=== PATIENT | female | born 1970 | race Caucasian/White ===

== ENCOUNTER → 2020-06-23 12:57 | Outpatient (CLI) | payer OTHER, SELFPAY ==
--- NOTE | ~2020-06-23 | US_ITS ---
EXAMINATION: US thyroid DATE: 06/23/2020 15:00 INDICATION: Abnormal thyroid function tests. TECHNIQUE: Multiple ultrasound images of the thyroid were obtained. COMPARISON: None. FINDINGS: The right thyroid lobe measures 3.8 x 1.2 x 1.5 cm. The left thyroid lobe measures 4.6 x 1.5 x 1.4 c m. In the right thyroid lobe, there is a 5 mm solid, very hypoechoic, bcaff-mulq-kizy nodule with sm ooth margin without echogenic foci (TI-RADS TR4). In the left thyroid lobe, there is a 4 mm nodule. IMPRESSION: 1. Small thyroid nodules, likely not clinically significant. No follow-up is needed. Reviewed, dictated and finalized at location B. IMPRESSION: 1. Small thyroid nodules, likely not clinically significant. No follow-up is ne eded.
== END ==
PROVIDERS: PCP Nurse Practitioner Adult Health; Visit Provider Nurse Practitioner Adult Health
DX: E07.9 Disorder of thyroid, unspecified (principal)
CPT/HCPCS: 76536

== ENCOUNTER → 2020-06-23 13:00 | Outpatient (CLI) | payer OTHER, SELFPAY ==
--- NOTE | ~2020-06-23 | MM_ITS ---
EXAMINATION: MM screening kb BI w [facility] HISTORY: Screening mammogram TECHNIQUE: Craniocaudal and mediolateral oblique 3-D tomosynthesis images were obtained and synthetic 2-D images were generated. CAD analysis was submitted and interpreted. COMPARISON: 06/08/2019, 06/18/2018, 06/03/2017 BREAST PARENCHYMAL COMPOSITION: The breasts are heterogeneously dense, which may obscure small masses . FINDINGS: RIGHT BREAST: There is no evidence of suspicious mass, calcification, or architectural distortion to suggest malignancy. There has been no significant interval change. LEFT BREAST: There is a possible mass in the posterior third outer breast best appreciated 6.5 cm fro m the nipple on the craniocaudal view. IMPRESSION: 1. Possible left breast mass. 2. Additional mammographic views and possible breast ultrasound are recommended. BI-RADS Category 0: Incomplete: Needs additional imaging evaluation. Reviewed, dictated and finalized at location A. IMPRESSION: 1. Possible left breast mass. 2. Additional mammographic views and possible breast ultrasound are recommended . BI-RADS Category 0: Incomplete: Needs additional imaging evaluation.
== END ==
PROVIDERS: PCP Nurse Practitioner Adult Health; Visit Provider Obstetrics & Gynecology
DX: Z12.31 Encounter for screening mammogram for malignant neoplasm of breast (principal); R92.8 Other abnormal and inconclusive findings on diagnostic imaging of breast
CPT/HCPCS: 77063; 77067

== ENCOUNTER → 2020-07-19 13:31 | Outpatient (CLI) | payer OTHER, SELFPAY ==
--- NOTE | ~2020-07-19 | MMUS_ITS ---
EXAMINATION: MM diagnostic mammo unilat LT, US breast LT limited HISTORY: Follow-up left breast asymmetry TECHNIQUE: Additional 3-D tomosynthesis images of the left breast were performed and synthetic 2-D im ages were generated. CAD analysis was submitted and interpreted. High resolution left breast ultrasou nd was performed. COMPARISON: Comparison to multiple prior studies sequentially, with oldest reviewed study dated 04/2017. BREAST PARENCHYMAL COMPOSITION: Breast composed of scattered areas of fibroglandular density. FINDINGS: MAMMOGRAPHIC FINDINGS: There are no suspicious masses, calcifications or architectural distortion in the left breast to sugg est malignancy. ULTRASOUND: Limited left breast ultrasound: There are multiple cysts of the left breast, largest in the periareol ar location measuring 7 mm. No suspicious masses to suggest malignancy. IMPRESSION: 1. No evidence for malignancy in the left breast. Benign findings. 2. Routine yearly screening mammogram and regular clinical breast examination are recommended. BI-RADS Category 2: Benign finding(s). Reviewed, dictated and finalized at location A. IMPRESSION: 1. No evidence for malignancy in the left breast. Benign findings. 2. Routine yearly screening mammogram and regular clinical breast examination a re recommended. BI-RADS Category 2: Benign finding(s).
== END ==
PROVIDERS: PCP Nurse Practitioner Adult Health; Visit Provider Obstetrics & Gynecology
DX: N60.02 Solitary cyst of left breast (principal)
CPT/HCPCS: 76642; 77065

== ENCOUNTER 2021-07-18 11:15 | Emergency (ER) | payer OTHER, SELFPAY ==
[2021-07-18 11:35] VITALS: BP 116/67; PULSE 113; RESP 18; TEMP 36.9; O2SAT 98
--- NOTE | 2021-07-18 11:43 | ED.URI ---
HPI - URI/Sore Throat General Chief Complaint: Upper Respiratory Infection Stated Complaint: Rt Ear Irritation,Stuffy Nose,Cough Time Seen by Provider: 07/18/21 11:47 Source: patient and RN notes reviewed Mode of arrival: ambulatory Limitations: no limitations History of Present Illness HPI Narrative: 51-year-old female presents with concern for ringing and pain in the right ear, nasal drainage, cough, loss of voice, fatigue. Reports 4-day history of symptoms. Reports she is taken several [id number]-[id number] multisymptom cold medicines with help which help her symptoms, however they gave her diarrhea which she cannot have at work. She reports cough keeps her awake at night. 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 She denies shortness of breath, body aches, chills, sweats, fever. MD elicited complaint: nasal congestion Related Data Home Medications Medication Instructions Recorded Confirmed fluoxetine [Prozac] 20 mg PO DAILY 07/18/21 07/18/21 phentermine 37.5 mg PO DAILY 07/18/21 07/18/21 rosuvastatin 20 mg PO DAILY 07/18/21 07/18/21 thyroid 30 mg PO DAILY 07/18/21 07/18/21 Allergies Allergy/AdvReac Type Severity Reaction Status Date / Time codeine AdvReac Nausea and Verified 07/18/21 11:46 Vomiting Review of Systems Review of Systems: CONSTITUTIONAL: Reports malaise. Denies chills, sweats, or fever. EYES: Denies visual changes, redness, or discharge. ENT: Reports rhinorrhea, congestion, sinus pain, otalgia. Denies sore throat. CARDIOVASCULAR: Denies chest pain, palpitations, or edema. RESPIRATORY: Reports cough. Denies dyspnea. GASTROINTESTINAL: Denies abdominal pain, nausea, vomiting, diarrhea SKIN: Denies rash or itching. MUSCULOSKELETAL: Denies myalgia. NEUROLOGIC: Reports headache. All systems reviewed & are unremarkable except as noted in HPI and below PMFSH Comments At time of signature, agree with nursing past medical, surgical, social and family history. There is no relevant family history pertinent to the presenting complaint Exam Narrative: GENERAL: Nontoxic-appearing and in no acute distress. HEAD: Normocephalic EYES: PERRLA, conjunctivae clear ENT: Nares clear, turbinates edematous and erythematous, clear discharge. Mucous membranes moist. TM pearly arizmendi with sharp light reflex bilaterally; no tragal tenderness. Oropharynx not erythematous without lesions. Tonsils not enlarged and without exudate, no drooling, no hoarseness, no trismus, uvula midline. NECK: Supple. No lymphadenopathy CHEST: Clear to auscultation, breath sounds equal. No wheezing, rhonchi, rales, or stridor. No respiratory distress, speaks in full sentences. HEART: Regular rate and rhythm. No murmur heard. SKIN: Warm, dry, no rash. NEURO: Alert and oriented x3. PSYCH: Normal mood and affect Course Course Emergency Course: Patient is aware of diagnosis, understands and agrees to treatment plan. Anticipatory guidance given. Patient agrees to follow-up as directed and is aware of reasons to seek care at the emergency department. Portions of this record may have been created with voice recognition software Level of Care: Express Care Visit Vital Signs Vital signs: Vital Signs Temperature 98.4 F 07/18/21 11:35 Pulse Rate 113 H 07/18/21 11:35 Respiratory Rate 18 07/18/21 11:35 Blood Pressure 116/67 07/18/21 11:35 Pulse Oximetry 98 07/18/21 11:35 Temperature 98.4 F 07/18/21 11:35 Pulse Rate 113 H 07/18/21 11:35 Respiratory Rate 18 07/18/21 11:35 Blood Pressure 116/67 07/18/21 11:35 Pulse Oximetry 98 07/18/21 11:35 Reviewed. MDM - URI/Sore Throat MDM Narrative Medical decision making narrative: Differential diagnosis considered: Cerna virus, strep pharyngitis, allergic rhinitis, upper respiratory tract infection, sinusitis, rhinosinusitis, nasopharyngitis. viral pharyngitis, otitis media, otitis externa, pneumonia, bronchitis, viral cough syndrome, viral syndrome, and i
== END 2021-07-18 12:14 | disposition home or self-care (01) ==
PROVIDERS: Emergency Provider Nurse Practitioner; PCP Nurse Practitioner Adult Health
DX: J06.9 Acute upper respiratory infection, unspecified (principal); Z20.822 Contact with and (suspected) exposure to COVID-19
CPT/HCPCS: 87426; 87804; 99213; C9803; G0463

== ENCOUNTER → 2021-11-02 15:50 | Outpatient (CLI) | payer OTHER, SELFPAY ==
--- NOTE | ~2021-11-02 | MM_ITS ---
EXAMINATION: MM screening [facility] BI w [facility] HISTORY: Screening mammogram TECHNIQUE: Craniocaudal and mediolateral oblique 3-D tomosynthesis images were obtained and synthetic 2-D images were generated. CAD analysis was submitted and interpreted. COMPARISON: 07/19/2020, 06/23/2020, 06/08/2019 BREAST PARENCHYMAL COMPOSITION: The breasts are heterogeneously dense, which may obscure small masses . FINDINGS: There is no suspicious mass, calcification, or architectural distortion to suggest malignan cy in either breast. There has been no suspicious interval change. IMPRESSION: 1. No mammographic evidence of malignancy. 2. Recommend routine screening mammography in one year. BI-RADS Category 1: Negative Reviewed, dictated and finalized at location A.
== END ==
PROVIDERS: PCP Nurse Practitioner Adult Health; Visit Provider Obstetrics & Gynecology
DX: Z12.31 Encounter for screening mammogram for malignant neoplasm of breast (principal)
CPT/HCPCS: 77063; 77067

== ENCOUNTER 2022-11-06 16:08 | Emergency (ER) | payer OTHER, SELFPAY ==
--- NOTE | ~2022-11-06 | XR_ITS ---
EXAM: XR knee LT 3V DATE: 11/06/2022 17:31 HISTORY: POPPING AND PAIN WHILE WALKING . COMPARISON: None available. FINDINGS: Normal mineralization. No fracture or dislocation. No lytic or blastic lesion. Mild tricom partment osteoarthritis. No erosion or periosteal change. Soft tissues within normal limits. Small kn ee joint effusion. IMPRESSION: No acute osseous finding in the left knee. Reviewed, dictated and finalized at location K.
--- NOTE | ~2022-11-06 | CT_ITS ---
EXAMINATION: CTA [facility] DATE: 11/07/2022 02:03 INDICATION: Posterior left knee pain. TECHNIQUE: Computed tomographic angiography (CTA) of the left lower limb was performed with 150 mL Om nipaque-350 intravenous contrast. Automated exposure control and iterative reconstruction technique w ere employed. The dose-length product was 637.45 mGy-cm. Maximum intensity projection 3D-reconstructi ons of the arteries were constructed by the technologist on a separate workstation. COMPARISON: Left knee radiographs 11/06/2022 FINDINGS: There is lateral subluxation of patella. No fracture. Left knee demonstrates mild osteoarth ritis of medial and lateral compartments and moderate osteoarthritis of patellofemoral compartment. N o knee joint effusion. There is a small Blanc's cyst with loose bodies. There is mild left hip osteoa rthritis. There is no significant stenosis of left common femoral artery, profunda femoris, superfici al femoral artery, popliteal artery, tibioperoneal trunk, anterior tibial artery, posterior tibial ar trish, or peroneal artery. IMPRESSION: 1. No significant arterial occlusive disease. 2. Polyarticular osteoarthritis. 3. Small Blanc's cyst with loose bodies. Reviewed, dictated and finalized at location A.
--- NOTE | ~2022-11-06 | US_ITS ---
EXAMINATION: US venous doppler [facility] DATE: 11/06/2022 20:04 INDICATION: POSTERIOR PAIN WHILE WALKIN . TECHNIQUE: Grayscale images without and with compression and Doppler images of the left lower extremi ty veins were obtained. COMPARISON: None FINDINGS: The left common femoral vein, profunda (deep) femoral vein, femoral vein, popliteal vein, peroneal v ein, posterior tibial veins, gastrocnemius vein, and greater saphenous vein are patent. IMPRESSION: Patent left lower extremity veins. No evidence of deep venous thrombosis. Reviewed, dictated and finalized at location K.
[2022-11-06 16:52] VITALS: BP 144/84; PULSE 110; RESP 16; TEMP 37.1; O2SAT 98
[2022-11-06 21:44] VITALS: BP 129/76; PULSE 91; RESP 16; O2SAT 97
--- NOTE | 2022-11-06 22:34 | ED.LOWEXIN ---
HPI - Extremity Injury (Lower) General Chief Complaint: Extremity Injury, Lower Stated Complaint: left knee injury Time Seen by Provider: 11/06/22 22:01 Source: patient Limitations: no limitations History of Present Illness HPI Narrative: Patient presents to the ED with significant other for L knee pain. Started suddenly arround 3 PM while walking, heard a pop and her leg felt like it gave out, she lowered herself to the ground, went to get back up and found herself unable to bear weight with severe pain in the back of the left knee. Denies history of this pain in the past. Admits to associated knee swelling. Denies any other injuries. Denies numbness, weakness, back pain, fever, rash. States the pain radiates up the back of her leg to the mid thigh. Denies history of injuries to the region but notes she has received therapy on her left knee before for arthritis versus burstitis. Denies inversion or eversion, more of a hyperextension if she had to choose. Has not tried anything for the pain, better when resting, worse with weight bearing or movement. Related Data Home Medications Medication Instructions Recorded Confirmed fluoxetine 20 mg capsule (Prozac) 20 mg PO DAILY 07/18/21 11/13/22 rosuvastatin 20 mg tablet 20 mg PO DAILY 07/18/21 11/13/22 thyroid 30 mg tablet 30 mg PO DAILY 07/18/21 11/13/22 Allergies Allergy/AdvReac Type Severity Reaction Status Date / Time codeine AdvReac Nausea and Verified 11/12/22 11:46 Vomiting Review of Systems Review of Systems: All systems reviewed & are unremarkable except as noted in HPI and below (HPI) [facility] Family History Family History (Updated 11/12/22 @ 11:48 by Iqra Zimmerman MA) Mother Cancer Other Cancer Social History Social History (Updated 11/12/22 @ 11:49 by Iqra Zimmerman MA) Smoking status: Never smoker Alcohol intake: never Substance use: never Substance use type: does not use Lack of Transportation: No Lack of Food: Never True Current Housing: I Have Housing Concerned About Future Housing: No Difficulty Paying Gas/Electric Bills: No Difficulty Paying for Meds: No Currently Unemployed: No Education: High School Diploma/GED Difficulty w/ Childcare or Family Care: No Comments At time of signature, I have reviewed and agree with nursing past medical, surgical, social and family history unless otherwise noted. Please see the nursing chart for further information. There is no relevant family history pertinent to the presenting complaint. Exam Narrative: CONST: No acute distress. Well nourished. HENMT: Head is normocephalic and atraumatic. Moist mucous membranes. No posterior oropharynx erythema. EYES: No conjunctival icterus, injection, or pallor. PERRL. NECK: No meningeal signs. RESP: Able to speak in full sentences. Normal respiratory effort. CTAB. CARDIO: Regular rate. Regular rhythm. 2+ DP and radial pulses bilaterally. GI: Nondistended. No tenderness to palpation. Soft. : No CVA tenderness to palpation. SKIN: No rashes or lesions noted on exposed skin. NEURO: Oriented x3. Moves all extremities. EXTREM: No pedal edema. PSYCH: Normal affect. Extrem: Left lower extremity: normal capillary refill and knee Details: tenderness Location: of the popliteal fossa; not of the patella, not of the tibial tuberosity, not of the medial joint line, not of the lateral joint line, not of the proximal fibula, not of the pre-patellar area, not of the infrapatellar area, not of the distal upper leg and not of the proximal tibia, abnormal ROM Details: held in an abnormal fashion (30 degrees of flexion), pain with active ROM Details: with extension and with flexion, pain with passive ROM Details: with extension and with flexion and unable to extend lower leg actively, knee ligament exam normal Details: anterior drawer test normal, posterior drawer test normal, valgus stress test normal, varus stress test normal, no pain with axi
[2022-11-06 23:21] LABS: Estimated Glomerular Filt Rate > 60
[2022-11-07 02:12] LABS: Anion Gap 8 mmol/L (8-16); Blood Urea Nitrogen 14 mg/dL (7-17); Calcium 8.5 mg/dL (8.4-10.2); Carbon Dioxide 19 mmol/L (22-30); Chloride 106 mmol/L (98-107); Estimated Glomerular Filt Rate > 60; Glucose 103 mg/dL (65-110); Potassium 3.6 mmol/L (3.4-5.0); Sodium 133 mmol/L (137-145)
[2022-11-07 08:01] VITALS: BP 120/75; PULSE 96; RESP 18; O2SAT 97
[2022-11-07 09:19] VITALS: BP 127/85; PULSE 96; RESP 18; O2SAT 100
== END 2022-11-07 09:31 | disposition home or self-care (01) ==
PROVIDERS: Emergency Provider Student in an Organized Health Care Education/Training Program; PCP Nurse Practitioner Family
DX: M71.22 Synovial cyst of popliteal space [Baker], left knee (principal); M17.12 Unilateral primary osteoarthritis, left knee; M25.562 Pain in left knee; M25.462 Effusion, left knee; M79.652 Pain in left thigh
CPT/HCPCS: 36415; 73562; 73706; 80048; 81025; 93971; 99284; Q9967

== ENCOUNTER → 2022-11-16 07:39 | Outpatient (CLI) | payer OTHER, SELFPAY ==
--- NOTE | ~2022-11-16 | MR_ITS ---
MRI of the left knee Clinical history: Meniscal tear Technique: Coronal proton density and proton density-weighted images, sagittal proton-density and T2 fat-sat images, and axial proton-density fat-saturated images were acquired. Findings: Anterior and posterior cruciate ligaments are intact. Medial collateral ligament and the la teral collateral ligament complex are intact. Popliteus tendon is intact. Lateral meniscus is intact, without evidence of tear. There is a radial tear near the posterior root of the medial meniscus. There is moderate chondromalacia of the medial compartment. There is mild chondromalacia of the later al compartment. There is extensive high-grade chondromalacia at the patellar apex extending to the la teral patellar facet. There is diffuse moderate to high-grade chondromalacia of the femoral trochlea. Small tricompartmental osteophytes are present. Extensor mechanism is intact. No significant joint effusion. Minimal Blanc's cyst. There is a 4 mm lo ose body within the Blanc's cyst. Impression: Radial tear near the posterior root of the medial meniscus. Mild to moderate tricompartmental osteoarthritis, as detailed above. Minimal Blanc's cyst with 4 mm loose body within it. Reviewed, dictated and finalized at location . Impression: Radial tear near the posterior root of the medial meniscus. Mild to moderate tricompartmental osteoarthritis, as detailed above. Minimal Blanc's cyst with 4 mm loose body within it.
== END ==
PROVIDERS: PCP Nurse Practitioner Family; Visit Provider Orthopaedic Surgery
DX: S83.242A Other tear of medial meniscus, current injury, left knee, initial encounter (principal); M17.12 Unilateral primary osteoarthritis, left knee; M71.22 Synovial cyst of popliteal space [Baker], left knee; M23.42 Loose body in knee, left knee
CPT/HCPCS: 73721

== ENCOUNTER 2022-12-28 01:26 | Day surgery (SDC) | payer OTHER, SELFPAY ==
[2022-12-18 15:17] VITALS: BMI 35.4
--- NOTE | 2022-12-18 15:22 | PC.NURSE ---
Report to the Outpatient Waiting Room, entrance under the green pavilion located off [facility], at time 1000 on date 12/28/22. Planned Procedure Time: 1200. Time changes happen often and if your time is changed the preop area will call you the afternoon before. - You and your visitor will be asked to self-screen and do not enter if you have any COVID symptoms. - A mask is optional within the hospital at this time. Patients may have clear liquids (water, carbonated beverages, clear teas, apple juice) until 3 hours prior to surgery with a maximum of 20 ounces. - No food from midnight until time of surgery Take the following medications with a SIP of water the morning of surgery: FLUOXETINE DO NOT STOP ANY OF YOUR OTHER PRESCRIPTION MEDICATIONS PRIOR TO SURGERY ?EXCEPT THE FOLLOWING Medications to discontinue per physician: VITAMINS/SUPPLEMENTS Date to take last dose: 12/24/22 Please no make-up, nail kenyan, hairspray, perfume, deodorant, or body powder the day of surgery. No jewelry (including any body piercings) or valuables the day of surgery, leave them at home. Please take a shower or bath the night before, or the morning of, surgery with an antibacterial soap. Wear comfortable, loose fitting clothing. - Jewelry must be removed prior to entering the operating room. Rings and piercings that are not removed may be cut off. - The hospital will not accept responsibility for valuables. - Please leave all valuables, including medications, at home the day of surgery. If you are going home after surgery, a licensed professional driver must drive you home. - NO public transportation without another adult if you receive anesthesia. - We recommend that an adult stay with you for 24 hours following discharge. - We also recommend that you do not drive, make important decision, drink alcoholic beverages, or take any drugs that were not prescribed by your health care provider for at least 24 hours after your discharge time. Follow any additional instructions given to you from your surgeon. If you or anyone in your household have experienced Covid symptoms in the past week, please notify your surgeon or the nurse liaison at the phone number below for possible testing. Telephone instructions given to PT - MCKAYLA MARSHALL and asked if any additional questions and then verbalized understanding. Patient advised to call surgeon office or pre surgery nurse liaison [phone] if any additional questions.
[2022-12-28] VITALS (9 sets, daily range): BP systolic 89–138; BP diastolic 50–88; PULSE 77–105; RESP 15–21; TEMP 36.4; O2SAT 95–100
[2022-12-28] MEDS: ACETAMINOPHEN 500 MG TABLET 1000 MG PO (10:45)
[2022-12-28] MEDS: LACTATED RINGERS 1,000 ML 30 ML IV CONT ×2 (10:50→13:46)
[2022-12-28] MEDS: KETOROLAC 15 MG/ML VIAL (*BKC) IV PUSH (10:52)
--- NOTE | 2022-12-28 11:20 | WPDANESEPPF ---
Anes - Initial Pre Proc Eval Procedure: Operation Date: 12/28/22 12:00 Proposed Procedures p Left Knee Arthroscopic Partial Medial Meniscectomy - Karel Willis MD Date/Time: 12/28/22 11:20 Surgeon: Karel Willis MD Pre Op Diagnosis: left knee medial meniscus tear Patient Data Age: 52 Gender: F Height: 1.45 m Weight: 73.6 kg Last Vital Signs Temp 36.4 C L 12/28/22 10:06 Pulse 81 12/28/22 10:06 Resp 20 12/28/22 10:06 BP 138/88 12/28/22 10:06 Pulse Ox 97 12/28/22 10:06 O2 Del Method Room Air 12/28/22 10:06 Allergies Allergy/AdvReac Type Severity Reaction Status Date / Time codeine AdvReac Unknown Nausea and Verified 12/28/22 10:10 Vomiting Home Medications Medication Instructions Recorded Confirmed Type fluoxetine 20 mg capsule (Prozac) 20 mg PO DAILY 07/18/21 12/28/22 History ascorbic acid (vitamin C) 1,000 mg 500 mg PO DAILY 12/18/22 12/28/22 History tablet (Vitamin C) cholecalciferol (vitamin D3) 125 125 mcg PO DAILY 12/18/22 12/28/22 History mcg (5,000 unit) tablet (Vitamin D3) cinnamon bark 500 mg capsule 500 mg PO DAILY 12/18/22 12/28/22 History (Cinnamon) glucosamine sulfate 750 mg tablet 750 mg PO DAILY 12/18/22 12/28/22 History multivitamin 1 tablet PO DAILY 12/18/22 12/28/22 History vitamin E 670 mg (1,000 unit) 670 mg PO DAILY 12/18/22 12/28/22 History capsule Patient hx anesthesia problems: post op nausea/vomiting Family hx anesthesia problems: none Results Review: All pre-operative results and documents have been reviewed as part of the pre-operative evaluation. [facility] Past Medical History Medical History (Updated 12/28/22 @ 11:20 by Clay Clemens DO) Anxiety Depression PONV (postoperative nausea and vomiting) Family History Family History Mother Cancer Other Cancer Social History Social History (Reviewed 12/10/22 @ 08:13 by RADU Trejo Smoking status: Never smoker Alcohol intake: never Substance use: never Substance use type: does not use Lack of Transportation: No Lack of Food: Never True Current Housing: I Have Housing Concerned About Future Housing: No Difficulty Paying Gas/Electric Bills: No Difficulty Paying for Meds: No Currently Unemployed: No Education: High School Diploma/GED Difficulty w/ Childcare or Family Care: No Living arrangements: with family Spiritual care concerns: No Anes - Eval Final PreProcedure Day of Procedure 12/28/22 11:20 Patient weight: obese Heart: regular rate and rhythm Lungs: clear to auscultation Airway: Mallampati scale class II Neurological: alert and oriented Last oral intake: >/= 8 hours ASA classification: II Emergent: no Anesthetic plan: proceed Anesthesia type and monitoring: general LMA and standard monitoring Results Review: All pre-operative results and documents have been reviewed as part of the pre-operative evaluation. Informed Consent: The patient's anesthetic plan and its attendant risks and benefits were discussed with the patient/family/POA. Questions were solicited and answers provided to the satisfaction of the patient/family/POA.
[2022-12-28] MEDS: SCOPOLAMINE 1.5 MG PATCH TRANSDERM (12:05)
--- NOTE | 2022-12-28 12:14 | WPDHPUPDATE1 ---
History and Physical Update Update Date/Time: 12/28/22 12:14 History and Physical has been reviewed, including an updated exam of the patient. There are NO changes in the patient's condition. Risks, benefits, and alternatives have been discussed and questions answered. Patient agrees to proceed with procedure.
[2022-12-28] MEDS: ceFAZolin 2 GM/D5W 50 ML 2 GM/50 ML BAG IVPB (12:24)
[2022-12-28] MEDS: BUPIVACAINE/EPINEPHRINE 0.5% 10 ML VIAL 30 ML INFILTRATE (12:55)
--- NOTE | 2022-12-28 13:27 | P.OP_ITS ---
Procedure Note - Detailed Date of Procedure 12/28/22 Pre-op Diagnosis left knee medial meniscus tear Post-op Diagnosis Same Procedure Performed Arthroscopic partial medial meniscectomy, left knee. Surgeon Karel Willis MD [employer] Consultant Supervisor Eliana Chery PA-C Anesthesia General Findings Posterior horn degenerative tear with radial split. Consistent with MRI. Medial femur chondromalacia grade 2/3, medial tibia grade 1. Lateral femur chondromalacia grade 0, lateral tibia grade 0. Patellar grade 0, trochlea grade 1. Description of Procedure The patient was identified and the surgical site confirmed and signed in the preoperative holding area. Antibiotics were started per protocol. She was brought to the operative room and transferred to the OR table. A general anesthetic was administered. Supine position with the operative lower extremity position in the leg ferrari after placement of a well padded tourniquet. The leg support was lowered and the contralateral limb was supported with a soft bolster. The knee was prepped and draped in the usual sterile fashion. A time- out was performed. The portal sites were marked and infiltrated with 0.5% Marcaine 20 mL. The limb was exsanguinated and the tourniquet inflated to 300 mL Hg. Standard inferolateral and inferomedial portals were established. Inflow was obtained with the saline pump. The camera was introduced. Diagnostic inspection of the joint was accomplished. The meniscus was debrided with the arthroscopic shaver and punches until stable. The radiofrequency probe was also used for further d?bridement. The arthroscopic instruments were removed. The tourniquet released and wounds closed with subcutaneous 4-0 Monocryl absorbable suture. Steri strips and a sterile dressing were applied. A light elastic wrap was placed. The patient was extubated and brought to the recovery room in stable condition. Estimated Blood Loss -5.0 Drains No Complications No immediate complications Condition Stable Disposition PACU [facility] Billing Surgery - Charge Forward: Surgery Billing
== END 2022-12-28 15:18 | disposition home or self-care (01) ==
PROVIDERS: PCP Nurse Practitioner Family; Visit Provider Orthopaedic Surgery
PROC: (CPT 29870; principal; 2022-12-28 12:00)
DX: S83.242A Other tear of medial meniscus, current injury, left knee, initial encounter (principal); M94.262 Chondromalacia, left knee; X50.0XXA Overexertion from strenuous movement or load, initial encounter; F41.9 Anxiety disorder, unspecified; F32.A Depression, unspecified; E66.9 Obesity, unspecified; Z68.35 Body mass index [BMI] 35.0-35.9, adult
CPT/HCPCS: 29881; A9270; J0690; J1100; J1885; J2250; J2405; J2704; J3010; J7120

== ENCOUNTER → 2023-02-06 15:00 | Outpatient (CLI) | payer OTHER, SELFPAY ==
--- NOTE | ~2023-02-06 | MM_ITS ---
EXAMINATION: MM screening [facility] HISTORY: Screening mammogram TECHNIQUE: Craniocaudal and mediolateral oblique 3-D tomosynthesis images were obtained and synthetic 2-D images were generated. CAD analysis was submitted and interpreted. COMPARISON: 11/02/2021, 07/19/2020, 06/23/2020 BREAST PARENCHYMAL COMPOSITION: There are scattered areas of fibroglandular density. FINDINGS: No suspicious mass, calcification, or architectural distortion are identified in either miguel a ast to suggest malignancy. There has been no suspicious interval change. IMPRESSION: 1. No mammographic evidence of malignancy. 2. Recommend routine screening mammography in one year. BI-RADS Category 1: Negative Reviewed, dictated and finalized at location A. CIPAL INVESTIGATOR
== END ==
PROVIDERS: Visit Provider Obstetrics & Gynecology
DX: Z12.31 Encounter for screening mammogram for malignant neoplasm of breast (principal)
CPT/HCPCS: 77063; 77067

== ENCOUNTER 2024-02-12 15:14 | Outpatient (CLI) | payer BC, OTHER, SELFPAY ==
--- NOTE | ~2024-02-12 | MM_ITS ---
EXAMINATION: MM screening [facility] BI [facility] [place] HISTORY: Screening TECHNIQUE: Craniocaudal and mediolateral oblique 3-D tomosynthesis images were obtained and synthetic 2-D images were generated. CAD analysis was submitted and interpreted. COMPARISON: Comparison to multiple prior studies sequentially, with oldest reviewed study dated 06/18. BREAST PARENCHYMAL COMPOSITION: Not dense: There are scattered areas of fibroglandular density. FINDINGS: There is no evidence of suspicious mass, calcification, or architectural distortion to sugg est malignancy in either breast. There has been no suspicious interval change. IMPRESSION: 1. No mammographic evidence of malignancy. 2. Recommend routine screening mammography in one year. BI-RADS Category 1: Negative Reviewed, dictated and finalized at location B. FIREMAN
== END 2024-02-12 15:15 | disposition home or self-care (01) ==
PROVIDERS: Visit Provider Obstetrics & Gynecology
DX: Z12.31 Encounter for screening mammogram for malignant neoplasm of breast (principal)
CPT/HCPCS: 77063; 77067

== ENCOUNTER 2024-12-30 13:18 | Outpatient (CLI) | payer BC, OTHER, SELFPAY ==
--- NOTE | ~2024-12-30 | MR_ITS ---
EXAMINATION: MR knee RT wo con DATE: 12/30/2024 14:16 INDICATION: Medial right knee pain. Meniscal tear. TECHNIQUE: Magnetic resonance imaging (MRI) of the right knee was performed without intravenous contrast. Sequences included coronal PD-weighted FSE, coronal PD-weighted FS FSE, sagittal T2-weighted FSE, sagittal PD-weighted FS FSE and axial PD weighted fat saturated FSE. COMPARISON: None. FINDINGS: Medial compartment: Complex tear at the posterior horn of the medial meniscus with longitudinal horizontal component extending from the posterior body throughout the posterior horn, radial component at the central aspect of the posterior horn and longitudinal vertical component in the more lateral aspect of the posterior horn. Partial-thickness chondral ulceration along the anterior to central weightbearing medial femoral condyle deepest along the central weightbearing aspect of the femoral condyle were there is mild cortical irregularity and subarticular edema-like signal change. Additional mild partial-thickness cart ilage loss without evident chondral surface regularity and without degenerative subchondral changes at the medial tibial plateau. Lateral compartment: Lateral meniscus is normal. Articular cartilage is normal. Patellofemoral compartment: Deep chondral ulceration at the cephalad aspect of the patellar apical ridge and more extensively at the medial patellar facet with scattered small foci of underlying subarticular edema-like signal change. There is shallow chondral ulceration at the inferior aspect of the medial trochlea. Ligaments and tendons: Anterior and posterior cruciate ligaments are normal. The medial collateral ligament and fibular collateral ligament complex are normal. The extensor mechanism is normal. The visualized medial and lateral hamstring tendons as well as the iliotibial band are normal. Fluid: Small knee joint effusion. No loose osteochondral bodies identified. Small Blanc's cyst. Mild infrapatellar subcutaneous edema without discrete bursal fluid collection. Osseous/other: No fracture or pathologic marrow replacing process. IMPRESSION: 1. Complex tear of the posterior horn of the medial meniscus. 2. 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 3. Small right knee joint effusion and small Blanc's cyst. Reviewed, dictated and finalized at location A. IMPRESSION: 1. Complex tear of the posterior horn of the medial meniscus. 2. 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 3. Small right knee joint effusion and small Blanc's cyst.
== END 2024-12-30 13:19 | disposition home or self-care (01) ==
LOC: MICIMG 13:19
PROVIDERS: PCP Orthopaedic Surgery; Visit Provider Orthopaedic Surgery
DX: S83.241A Other tear of medial meniscus, current injury, right knee, initial encounter (principal); X58.XXXA Exposure to other specified factors, initial encounter; M25.461 Effusion, right knee; M17.11 Unilateral primary osteoarthritis, right knee
CPT/HCPCS: 73721

== ENCOUNTER 2025-01-06 09:31 | Outpatient (CLI) | payer BC, OTHER, SELFPAY ==
--- NOTE | 2025-01-06 09:42 | ECG_ITS ---
Test Date: 2025-01-06 10:00:58 Measurements Intervals [place] Rate: 83 P: 8 MN: 143 QRS: 16 QRSD: 80 T: 5 QT: 392 QTc: 461 Interpretive Statements SINUS RHYTHM NORMAL ECG No previous ECG available for comparison Electronically Signed On 01-06-2025 14:41:20 BUILDING ASSOCIATE by Jaime More M.D.
--- OUTSIDE RECORDS SUMMARY | 2025-01-06 10:17 | XMS_ITS | Patient Health Record ---
Author Organization [facility] Address [address] [place], [place] [id number] Care Team Providers Care Clay Pigeon Setter Name Role Phone Evangelina Will Unavailable Unavailable Reason For Referral No Information Medications Medication SIG (Take, Route, Frequency, Duration) Notes Start Date End Date Status Medrol Dosepak ORAL Medrol DosepakOr iginal MedicationMedrol Dosepak *Reorder from [employer] for eRx and Interaction Alerts* 04/16/2022 Active Social History Social History Additional Details Category Social Info Options Details Migrated Social History Migrated Social History Smoking Status : Never used tobacco , History of tobacco use : Plan Of Treatment No Information Insurance Providers Payer Name Payer Address Payer Phone Subscriber Number Group Number Insured Name Patient Relationship to Insured Coverage Start Date Coverage End Date [employer] [address] [place], [place] [phone] [id number] MICHELLE MARSHALL Spouse - patient is the spouse of the insured
--- OUTSIDE RECORDS SUMMARY | 2025-01-06 10:17 | XMS_ITS | Clinical Summary ---
Author Organization [facility] Address [facility] [place] [address] Care Team Providers Care Piano Regulator Name Role Phone Luisana Martin NP Primary Care Provider [phone] Allergies Active Allergy Reactions Criticality Noted Date Comments Codeine Vomiting Low 05/20/2020 Medications No known medications Active Problems No known active problems Surgical History Surgery Date Site/Laterality Comments NO PAST SURGERIES Medical History Medical History Date Comments Known health problems: none Family History Medical History Relation Name Comments No Known Problems Father Diabetes Mother Relation Name Status Comments Father Alive Mother Alive Social History Tobacco Use Types Packs/Day Years Used Date Smoking Tobacco: Never Personal Safety Answer Date Recorded Getting School Help Needed Not on file 05/18 Comments Unknown Sex and Gender Information Value Date Recorded Sex Assigned at Not on file Legal Sex 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 Gender Identity Not on file Sexual Orientation Not on file 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
== END 2025-01-06 09:32 | disposition home or self-care (01) ==
LOC: ANHLAB 09:32 → ANHCARD 09:32
PROVIDERS: Visit Provider Orthopaedic Surgery
DX: Z01.818 Encounter for other preprocedural examination (principal)
CPT/HCPCS: 93005

== ENCOUNTER 2025-02-15 15:42 | Outpatient (CLI) | payer BC, OTHER, SELFPAY ==
--- NOTE | ~2025-02-15 | MM_ITS ---
EXAMINATION: MM screening [facility] HISTORY: Screening TECHNIQUE: Craniocaudal and mediolateral oblique 3-D tomosynthesis images were obtained and synthetic 2-D images were generated. CAD analysis was submitted and interpreted. COMPARISON: Comparison to multiple prior studies sequentially, with oldest reviewed study dated , 06/08/2019 BREAST PARENCHYMAL COMPOSITION: Not Dense: There are scattered areas of fibroglandular density. FINDINGS: There is no evidence of suspicious mass, calcification, or architectural distortion to suggest malignancy in either breast. IMPRESSION: 1. No mammographic evidence of malignancy. 2. Recommend routine screening mammography in one year. BI-RADS Category 1: Negative Reviewed, dictated and finalized at location A. NESS PROCESS MODELER
== END 2025-02-15 15:43 | disposition home or self-care (01) ==
LOC: MICIMG 15:43
PROVIDERS: PCP Obstetrics & Gynecology; Visit Provider Obstetrics & Gynecology
DX: Z12.31 Encounter for screening mammogram for malignant neoplasm of breast (principal)
CPT/HCPCS: 77063; 77067

== ENCOUNTER 2025-02-19 01:06 | Day surgery (SDC) | payer BC, OTHER, SELFPAY ==
[2025-02-17 09:03] VITALS: BMI 38.5
--- NOTE | 2025-02-17 09:12 | PC.NURSE ---
[facility] has started construction of its new state of the art ER which will open Spring 2026. With this, we anticipate parking may be a challenge for some our surgical patients and families. Parking spaces are limited but are available for all Surgical, obstetrics, and ER patients sharing this lot. If you arrive and find you are having a hard time finding a parking space, please note that we understand the challenges, please drive around the hospital and park near Hospital Entrance 1. When you enter this entrance, you can ask a volunteer to direct or take you back to the surgical waiting area to check in. We appreciate everyone?s understanding of these expected challenges while we build for your future. Report to the Outpatient Waiting Room, entrance under the green pavilion located off [address], at time __1200 on date __02/19/2025 . Planned Procedure Time: __1400 .? Time changes happen often and if your time is changed the preop area will call you the afternoon before. - You and your visitor will be asked to self-screen and do not enter if you have any COVID symptoms. Please call surgeon if you need to reschedule. - A mask is optional within the hospital at this time. Patients may have clear liquids (water, carbonated beverages, clear teas, apple juice) until 3 hours prior to surgery with a maximum of 20 ounces. - No food from midnight until time of surgery and no smoking, or chewing tobacco (or any form of nicotine). No chewing gum, candy or mints. - Infants may have breast milk until 4 hours before surgery, formula 6 hours prior to surgery. - Children will be allowed to drink immediately following surgery.? If applicable, please bring a bottle or sippy cup to assist with drinking. Juice, water, soda, and popsicles are readily available.? For infants on formula, please bring formula the day of surgery.? Pacifiers are allowed. Take only the following medications with a SIP of water on the morning of surgery: _Prozac DO NOT STOP ANY OF YOUR OTHER PRESCRIPTION MEDICATIONS PRIOR TO SURGERY EXCEPT THE FOLLOWING Hold all vitamins and supplements for 3 days per anesthesiologist. Medications to discontinue per physician ____N/A Date to take last dose___N/A Please no make-up, nail bengali, hairspray, perfume, deodorant, or body powder the day of surgery.? No jewelry (including any body piercings) or valuables the day of surgery, leave them at home.? Please take a shower or bath the night before, or the morning of, surgery with an antibacterial soap.? Wear comfortable, loose fitting clothing.? Children are encouraged to wear pajamas. - Jewelry must be removed prior to entering the operating room.? Rings and piercings that are not removed may be cut off. - The hospital will not accept responsibility for valuables.? - Please leave all valuables, including medications, at home the day of surgery. If you are going home after surgery, a licensed production truck driver must drive you home.? - NO public transportation without another adult if you receive anesthesia. - We recommend that an adult stay with you for 24 hours following discharge. - We also recommend that you do not drive, make important decision, drink alcoholic beverages, or take any drugs that were not prescribed by your health care provider for at least 24 hours after your discharge time. For Pediatric surgeries, we recommend two adults accompany the child home. Follow any additional instructions given to you from your surgeon. Telephone instructions given to __Denise and asked if any additional questions and then verbalized understanding. Patient advised to call surgeon office or pre surgery nurse liaison [phone] if any additional questions.
[2025-02-19] VITALS (9 sets, daily range): BP systolic 97–147; BP diastolic 54–85; PULSE 75–93; RESP 13–21; TEMP 36.5–36.6; O2SAT 97–100
--- NOTE | 2025-02-19 12:52 | P.PNAN_ITS ---
Anes - Initial Pre Proc Eval Procedure: Operation Date: 02/19/25 14:00 Proposed Procedures p Right Knee Arthroscopy, Partial Medial Meniscectomy - Karel Willis MD Date/Time: 02/19/25 12:52 Surgeon: Karel Willis MD Pre Op Diagnosis: right medial meniscal tear Patient Data Age: 55 Gender: F Height: 1.45 m Weight: 80.74 kg Allergies Allergy/AdvReac Type Severity Reaction Status Date / Time codeine AdvReac Unknown Nausea and Verified 02/19/25 13:55 Vomiting Home Medications ?Medication ?Instructions ?Recorded ?Confirmed ?Type fluoxetine 20 mg capsule (Prozac) 20 mg PO DAILY 07/1802/19/25 History cholecalciferol (vitamin D3) 125 125 mcg PO DAILY 12/0202/19/25 History mcg (5,000 unit) tablet (Vitamin D3) cinnamon bark 500 mg capsule 500 mg PO DAILY 12/18/22 02/19/25 History (Cinnamon) glucosamine sulfate 750 mg tablet 750 mg PO DAILY 12/0202/19/25 History multivitamin 1 tablet PO DAILY 12/18/22 1 04/22/24 History vitamin E 670 mg (1,000 unit) 670 mg PO DAILY 12/18/22 02/19/25 History capsule famotidine 20 mg tablet 20 mg PO DAILY PRN indigesti on 11/20/24 02/17/25 History fluticasone propionate 50 1 spray intranasal DAILY PRN 11/20/24 02/17/25 History mcg/actuation nasal allergy symptoms spray,suspension rosuvastatin 20 mg tablet 20 mg PO DAILY 11/20/2402/01 History scopolamine base 1 mg over 3 days 1 patch transdermal Q3D PRN motion 11/20/24 02/17/25 History transdermal patch sickness hydrocodone 5 mg-acetaminophen 325 1 - 2 tablet PO Q4- 6H PRN pain 7 02/19/25 Rx mg tablet days #30 tabs Patient hx anesthesia problems: post op nausea/vomiting Family hx anesthesia problems: none Results Review: All pre-operative results and documents have been reviewed as part of the pre- operative evaluation. [facility] Past Medical History Medical History Obesity (BMI 30-39.9) Vaginal dryness Subclinical hypothyroidism GERD without esophagitis Prediabetes Chronic kidney disease Hypercholesterolemia Anxiety and depression ZAAR (obstructive sleep apnea) PONV (postoperative nausea and vomiting) Depression Anxiety Surgical History Surgical History History of lumpectomy Breast History of tonsillectomy History of removal of cyst Throat History of removal of cyst Rt Axilla History of carpal tunnel surgery of right wrist (~2020) History of meniscectomy of left knee (~12/28/22) Partial Medial Family History Family History Mother Cancer Diabetes mellitus Other Cancer Father COPD (chronic obstructive pulmonary disease) Social History Social History Smoking status: Never smoker Alcohol intake: never Substance use: never Substance use type: does not use Lack of Transportation: No Lack of Food: Never True Current Housing: I Have Housing Concerned About Future Housing: No Difficulty Paying Gas/Electric Bills: No Difficulty Paying for Meds: No Currently Unemployed: No Education: High School Diploma/GED Difficulty w/ Childcare or Family Care: No Living arrangements: with family Spiritual care concerns: No Anes - Eval Final PreProcedure Day of Procedure 02/19/25 12:52 Patient weight: obese Heart: regular rate and rhythm Lungs: clear to auscultation Airway: Mallampati scale class II Neurological: alert and oriented Last oral intake: >/= 8 hours ASA classification: III Emergent: no Anesthetic plan: proceed Anesthesia type and monitoring: general LMA and standard monitoring Results Review: All pre-operative results and documents have been reviewed as part of the pre- operative evaluation. Informed Consent: The patient's anesthetic plan and its attendant risks and benefits were discussed with the patient/family/POA. Questions were solicited and answers provided to the satisfaction of the patient/family/POA.
[2025-02-19] MEDS: SCOPOLAMINE 1 MG PATCH 1 PATCH TRANSDERM (13:15)
[2025-02-19] MEDS: LACTATED RINGERS 1,000 ML 30 ML IV CONT (13:15)
[2025-02-19] MEDS: ACETAMINOPHEN 500 MG TABLET 1000 MG PO (13:15)
[2025-02-19] MEDS: KETOROLAC 15 MG/ML VIAL (*BKC) IV PUSH (13:15)
--- NOTE | 2025-02-19 13:41 | WPDHPUPDATE1 ---
History and Physical Update Update Date/Time: 02/19/25 13:41 History and Physical has been reviewed, including an updated exam of the patient. There are NO changes in the patient's condition. Risks, benefits, and alternatives have been discussed and questions answered. Patient agrees to proceed with procedure.
[2025-02-19] MEDS: ceFAZolin 2 GM in SODIUM CHLORIDE 0.9% IV 50 ML 100 ML IVPB (14:03)
--- NOTE | 2025-02-19 14:56 | W.PM.PROC2 ---
Procedure Note - Detailed Date of Procedure 02/19/25 Pre-op Diagnosis Right knee medial meniscal tear Post-op Diagnosis Same Procedure Performed Arthroscopic partial medial meniscectomy, right knee. Surgeon Karel Willis MD Anesthesia General Findings Complex medial meniscus tear. Medial femur chondromalacia grade 2/3, medial tibia grade 1. Lateral femur chondromalacia grade 0, lateral tibia grade 0. Patellar grade 1, trochlea grade 0. Description of Procedure The patient was identified and the surgical site confirmed and signed in the preoperative holding area. Antibiotics were started per protocol, and the patient was brought to the operative room and transferred to the OR table. A general anesthetic was administered. Supine position with the operative lower extremity position in the leg ferrari after placement of a well padded tourniquet. The leg support was lowered and the contralateral limb was supported with a soft bolster. The knee was prepped and draped in the usual sterile fashion. A time-out was performed. The portal sites were marked and infiltrated with 0.5% Marcaine 20 mL. The limb was exsanguinated and the tourniquet inflated to 300 mL Hg. Standard inferolateral and inferomedial portals were established. Inflow was obtained with the saline pump. The camera was introduced. Diagnostic inspection of the joint was accomplished. The meniscus was debrided with the arthroscopic shaver and punches until stable. The radiofrequency probe was also used for further d?bridement. Gentle chondroplasty performed on the medial femoral condyle. The arthroscopic instruments were removed. The tourniquet released and wounds closed with subcutaneous 4-0 Monocryl absorbable suture. Steri strips and a sterile dressing were applied. A light elastic wrap was placed. The patient was extubated and brought to the recovery room in stable condition. Estimated Blood Loss 5 Drains No Complications No immediate complications Condition Stable Disposition PACU [facility] Billing Surgery - Charge Forward: Surgery Billing
== END 2025-02-19 17:10 | disposition home or self-care (01) ==
PROVIDERS: PCP Nurse Practitioner; Visit Provider Orthopaedic Surgery
PROC: (CPT 29870; principal; 2025-02-19 14:00)
DX: S83.231A Complex tear of medial meniscus, current injury, right knee, initial encounter (principal); M17.11 Unilateral primary osteoarthritis, right knee; M94.261 Chondromalacia, right knee; X58.XXXA Exposure to other specified factors, initial encounter; K21.9 Gastro-esophageal reflux disease without esophagitis; E13.22 Other specified diabetes mellitus with diabetic chronic kidney disease; N18.9 Chronic kidney disease, unspecified; E78.00 Pure hypercholesterolemia, unspecified; F41.8 Other specified anxiety disorders; G47.33 Obstructive sleep apnea (adult) (pediatric); F32.A Depression, unspecified; F41.9 Anxiety disorder, unspecified; E03.8 Other specified hypothyroidism; E66.9 Obesity, unspecified; Z68.38 Body mass index [BMI] 38.0-38.9, adult; Z79.891 Long term (current) use of opiate analgesic; Z79.1 Long term (current) use of non-steroidal anti-inflammatories (NSAID); Z98.890 Other specified postprocedural states; Z80.9 Family history of malignant neoplasm, unspecified
CPT/HCPCS: 29881; J0690; A9270; J1100; J1885; J2003; J2250; J2405; J2704; J3010; J7120